=== PATIENT | female | born 1965 | race Caucasian/White ===

== ENCOUNTER 2019-01-27 00:23 | Emergency (ER) | payer OTHER ==
[~2019-01-27] VITALS: Ht 167.6 cm; Wt 65.9 kg
[2019-01-27 00:25] VITALS: Ht 167.6 cm; Wt 65.9 kg
[2019-01-27] MEDS ORDERED: ASPIRIN 325 MG TAB PO STA (00:54)
--- NOTE | 2019-01-27 02:09 | ERD ---
ER Documentation Chief Complaint Chief Complaint R81. SVT CONVERTED IN THE FIELD W/ 6MG ADENOSINE. DENIES CP. HPI This is a 53-year-old female says he woke up this morning and she was having heart racing. She took some aspirin because she thought that make it go away however around midday she started getting worsening palpitations with substernal chest pressure lasted for at least an hour and a half. She eventually called EMS when they arrived she was in SVT and they gave her adenosine and converted her into normal sinus rhythm. The patient states that she is trying to quit smoking so she was using nicotine patches and then had alcohol last night she felt like the SVT was due to that. ROS All systems reviewed and are negative except as per history of present illness. Allergies Allergies: Coded Allergies: No Known Allergy (Unverified , 01/27/19) PMhx/Soc Medical and Surgical Hx: pt denies Medical Hx, pt denies Surgical Hx History of Surgery: No Anesthesia Reaction: No Hx Neurological Disorder: No Hx Respiratory Disorders: No Hx Cardiac Disorders: No Hx Psychiatric Problems: No Hx Miscellaneous Medical Probl: No Hx Alcohol Use: Yes (SOCIALLY) Hx Substance Use: No Hx Tobacco Use: Yes Smoking Status: Current some day smoker FmHx Family History: No coronary disease Physical Exam Vitals Vital Signs Date Temp Pulse Resp B/P (MAP) Pulse Ox O2 O2 Flow FiO2 Time Delivery Rate 01/27/19 75 16 104/79 100 Room Air 01:27 (87) 01/27/19 75 12 120/84 100 00:25 (96) Physical Exam Const: Well-developed, well-nourished Head: Atraumatic, normocephalic Eyes: Normal Conjunctiva, PERRLA, EOMI, normal sclera, no nystagmus ENT: Normal External Ears, Nose and Mouth, moist mucus membranes. Neck: Full range of motion. No meningismus, no lymphadenopathy. Resp: Clear to auscultation bilaterally, no wheezing, rhonchi, rales Cardio: Regular rate and rhythm, no murmurs, S1 S2 present Abd: Soft, non tender x 4, non distended. Normal bowel sounds, no guarding or rebound, no pulsitile abdominal masses or bruits Skin: No petechiae or rashes, no ecchymosis , no maculopapular rash Back: No midline or flank tenderness Ext: No cyanosis, or edema, FROM x 4, normal inspection, neurovascularly intact x 4 Neur: Awake and alert, STR 5/5 x 4, sensation intact x 4, no focal findings, cerebellum intact Psych: Normal Mood and Affect Result Diagram: 01/27/19 0043 01/27/19 0043 Results 24 hrs Laboratory Tests Test 01/27/19 00:43 01/27/19 01:23 White Blood Count 8.8 10^3/ul Red Blood Count 4.25 10^6/ul Hemoglobin 13.4 g/dl Hematocrit 40.8 % Mean Corpuscular Volume 96.0 fl Mean Corpuscular Hemoglobin 31.5 pg Mean Corpuscular Hemoglobin Concent 32.8 g/dl Red Cell Distribution Width 12.2 % Platelet Count 227 10^3/UL Mean Platelet Volume 10.4 fl Immature Granulocytes % 0.200 % Neutrophils % 48.8 % Lymphocytes % 37.8 % Monocytes % 7.3 % Eosinophils % 5.1 % Basophils % 0.8 % Nucleated Red Blood Cells % 0.0 /100WBC Immature Granulocytes # 0.020 10^3/ul Neutrophils # 4.3 10^3/ul Lymphocytes # 3.3 10^3/ul Monocytes # 0.6 10^3/ul Eosinophils # 0.5 10^3/ul Basophils # 0.1 10^3/ul Nucleated Red Blood Cells # 0.0 10^3/ul Sodium Level 142 mmol/L Potassium Level 3.9 mmol/L Chloride Level 109 mmol/L Carbon Dioxide Level 23 mmol/L Anion Gap 10 Blood Urea Nitrogen 13 mg/dl Creatinine 0.90 mg/dl Est Glomerular Filtrat Rate mL/min > 60 mL/min Glucose Level 102 mg/dl Calcium Level 8.7 mg/dl Total Bilirubin 0.2 mg/dl Direct Bilirubin 0.00 mg/dl Indirect Bilirubin 0.2 mg/dl Aspartate Amino Transf (AST/SGOT) 18 IU/L Alanine Aminotransferase (ALT/SGPT) 17 IU/L Alkaline Phosphatase 65 IU/L Troponin I 0.050 ng/ml Total Protein 6.0 g/dl Albumin 3.5 g/dl Globulin 2.50 g/dl Albumin/Globulin Ratio 1.40 Urine Opiates Screen Negative Urine Barbiturates Negative Urine Amphetamines Screen Negative Urine Benzodiazepines Screen Negative Urine Cocaine Screen Negative Urine Cannabinoids Positive Current Medications Medications Dose Sig/Mel Start Time Status Last (Trade) Ordered Route PRN Stop Time Admin Dose Reason Admin Aspirin 325 mg ONCE STAT 01/27/19 DC 01/27/19 (Aspirin) PO 00:54 01:11 01/27/19 00:57 Procedures/MDM EKG: Rate/Rhythm: Normal Sinus Rhythm,NL intervals QRS, ST, QT: NORMAL [place], QRS, QT] Impression: NORMAL EKG EMS EKG demonstrates SVT heart rate 171 Patient be admitted to the hospital for chest pain due to SVT. The patient was in SVT for quite some time and this could induce the angina. [facility] [place] [id number] Radiology Main Line: [phone] DIAGNOSTIC IMAGING REPORT Patient: MARK RO : 1965 Age: 53 Sex: F MR #: [id number] DOS: 01/27/19 0054 Ordering MD: JERI CRAVEN DO Location: E/R Room/Bed: PROCEDURE: Portable chest x-ray. CLINICAL INDICATION: 53 years of age, female. Chest pain TECHNIQUE: Portable AP view of the chest. COMPARISON: None available. FINDINGS: Medical devices: None. Mediastinum: Cardiomediastinal contours are normal. Lungs: Lungs are clear. Pleura: Negative for pleural effusion or pneumothorax. Bones: No acute bony abnormality. there is anterior fusion hardware over the lower cervical spine that is incompletely imaged. Additional comment: There is a right breast implant. IMPRESSION: Negative for evidence of an acute chest process. RPTAT: HCTS Physician Carolann Date Time Electronically viewed and signed by Physician Carolann on 01/27/2019 02:59 CS/ CC: JERI CRAVEN DO [id number] Spoke with [place] doctor and accepted the patient in transfer Departure Diagnosis: Primary Impression: Chest pain Chest pain type: unspecified Qualified Codes: R07.9 - Chest pain, unsp ecified Additional Impression: SVT (supraventricular tachycardia) Condition: Stable JERI CRAVEN DO Jan 27, 2019 02:09
[2019-01-27 07:40] VITALS: BP 107/94; PULSE 71; RESP 18
== END 2019-01-27 08:02 | disposition short-term general hospital (02) ==
LOC: E/R 00:23
DX: I47.1 Supraventricular tachycardia (principal); F17.210 Nicotine dependence, cigarettes, uncomplicated
CPT/HCPCS: 36415; 71045; 80053; 80307; 84484; 85025; 93005